=== PATIENT | female | born 1965 | race African-American/Black ===

== ENCOUNTER 2019-11-12 19:46 | Emergency (ER) | payer MEDICAID ==
[~2019-11-12] VITALS: Ht 162.6 cm; Wt 91.0 kg
[~2019-11-12 19:46] MED LIST: METFORMIN
[2019-11-12] MEDS ORDERED: KETOROLAC 60MG/2ML VIAL IM ONE (20:30)
[2019-11-12 22:10] VITALS: BP 129/86
== END 2019-11-12 22:43 | disposition home or self-care (01) ==
LOC: ER 19:46
DX: S93.401A Sprain of unspecified ligament of right ankle, initial encounter (principal); I10 Essential (primary) hypertension; E11.9 Type 2 diabetes mellitus without complications; Z98.890 Other specified postprocedural states; Z79.84 Long term (current) use of oral hypoglycemic drugs; W01.0XXA Fall on same level from slipping, tripping and stumbling without subsequent striking against object, initial encounter; Y93.89 Activity, other specified; Y92.89 Other specified places as the place of occurrence of the external cause
CPT/HCPCS: 73610; 96372; 99283; J1885

== ENCOUNTER 2021-09-16 05:48 | Inpatient (IN) | payer MEDICAID, OTHER ==
[~2021-09-16] VITALS: Ht 154.9 cm; Wt 64.4 kg
[2021-09-16 08:03] LABS: BASOPHILS % 0.9 % (0.0-2.0); EOSINOPHILS % 1.6 % (0.0-5.0); HEMATOCRIT. 38.1 % (36.0-48.0); HEMOGLOBIN. 13.2 g/dL (12.0-16.0); LYMPHOCYTES % 27.9 % (20.0-50.0); MEAN CORPUSCULAR HEMOGLOBIN 28.7 pg (28.0-32.0); MEAN PLATELET VOLUME 8.1 fl (7.4-10.4); MONOCYTES % 7.1 % (2.0-8.0); NEUTROPHILS % 62.5 % (40.0-76.0); PLATELET 323 x1000/uL (130-400); RED BLOOD CELL COUNT 4.58 mill/uL (4.2-5.4); RED CELL DISTRIBUTION WIDTH 13.1 % (11.6-14.6)
[2021-09-16 08:10] LABS: CHLORIDE 111 mEq/L (98-107)
[2021-09-16] MEDS ORDERED: ACETAMINOPHEN 325MG TABLET PO ONE (09:00)
[2021-09-16] MEDS ORDERED: IOHEXOL-350 100 ML BOTTLE ONE (10:19)
[2021-09-16] MEDS ORDERED: HYDROCODONE/ACETAMINOPHEN 5/325MG TABLET PO PRN (17:00)
[2021-09-16] MEDS ORDERED: NALOXONE HCL 0.4MG/ML VIAL IV PRN (17:00)
[2021-09-16] MEDS ORDERED: LORAZEPAM 0.5MG TABLET PO PRN (19:00)
[2021-09-16] MEDS ORDERED: ONDANSETRON HCL 4MG/2ML INJ IV PRN (19:00)
[2021-09-16] MEDS ORDERED: ACETAMINOPHEN 325MG TABLET PO PRN (19:00)
[2021-09-16] MEDS: METHOCARBAMOL 750MG TABLET PO SCH (21:02)
[2021-09-16] MEDS: HYDROMORPHONE HCL/PF 2MG/ML CPJ IV PRN (21:03)
[2021-09-17] MEDS: HYDROMORPHONE HCL/PF 2MG/ML CPJ IV PRN (03:19)
[2021-09-17] MEDS: METHOCARBAMOL 750MG TABLET PO SCH (05:59)
[2021-09-17] MEDS ORDERED: DEXTROSE 50% WATER 50ML SYRINGE IV PRN (07:00)
[2021-09-17] MEDS: INSULIN LISPRO (LOW DOSE) 100 UNITS/ML SUBCUT SCH ×4 (07:06→20:51)
[2021-09-17] MEDS: OMEPRAZOLE 20MG CAPSULE EXTENDED RELEASE PO SCH (09:53)
[2021-09-17] MEDS: BLOOD SUGAR DIAGNOSTIC STRIP TEST SCH ×3 (11:30→21:18)
[2021-09-17] MEDS ORDERED: INSULIN GLARGINE UD 100 UNITS/ML SYR SUBCUT NR (14:00)
[2021-09-17 14:36] VITALS: BP 141/81
[2021-09-17] MEDS ORDERED: BENA10TA74 MT (14:50)
[2021-09-17] MEDS: HYDROCODONE/ACETAMINOPHEN 10/325MG TABLET PO PRN ×2 (14:57→21:20)
[2021-09-17 16:00] VITALS: BP 111/72
[2021-09-17 20:00] VITALS: BP 136/75
[2021-09-18] VITALS: BP 116/66
[2021-09-18] MEDS: HYDROCODONE/ACETAMINOPHEN 10/325MG TABLET PO PRN ×2 (03:55→12:40)
[2021-09-18 04:00] VITALS: BP 117/62
[2021-09-18] MEDS: BLOOD SUGAR DIAGNOSTIC STRIP TEST SCH ×3 (05:56→16:48)
[2021-09-18] MEDS: INSULIN LISPRO (LOW DOSE) 100 UNITS/ML SUBCUT SCH ×3 (05:57→17:57)
[2021-09-18 08:00] VITALS: BP 118/66
[2021-09-18] MEDS: OMEPRAZOLE 20MG CAPSULE EXTENDED RELEASE PO SCH (08:26)
[2021-09-18 12:00] VITALS: BP 153/87
[2021-09-18 16:00] VITALS: BP 113/59
[2021-09-18 18:01] VITALS: BP 113/59
[2021-09-19] MEDS ORDERED: FAMOTIDINE 20MG TABLET PO SCH (09:00)
== END 2021-09-18 19:28 | disposition home or self-care (01) | DRG 347 ==
LOC: ER 05:48 → EDBEDREQTM 13:02 → EDBEDREQ 13:02 → MICUSO 18:40 → ENRESERV 20:48 → CANRESERV 20:48 → EDBEDREQSVC 21:33 → 8WST 09-17 14:48
PROVIDERS: ADMIT Internal Medicine; ATTEND Internal Medicine
DX: M43.6 Torticollis (principal); E11.9 Type 2 diabetes mellitus without complications; I65.29 Occlusion and stenosis of unspecified carotid artery; G89.29 Other chronic pain; I10 Essential (primary) hypertension; Z20.822 Contact with and (suspected) exposure to COVID-19
CPT/HCPCS: 36415; 70498; 72141; 80053; 82962; 85025; 87426; 99285; J1170; J1815; J2405; Q9967

== ENCOUNTER 2023-09-02 01:46 | Emergency (ER) | payer MEDICAID, OTHER ==
[~2023-09-02] VITALS: Ht 160 cm; Wt 58.0 kg
[~2023-09-02 01:46] MED LIST changes: +BENA10TA74 MT
[2023-09-02 01:48] VITALS: BP 133/83; PULSE 98; RESP 18; TEMP 97.8; O2SAT 100
[2023-09-02] MEDS ORDERED: CEPH500C2 MT (02:31)
== END 2023-09-02 02:50 | disposition home or self-care (01) ==
LOC: ER 01:56
DX: L73.8 Other specified follicular disorders (principal); E11.9 Type 2 diabetes mellitus without complications; Z98.890 Other specified postprocedural states
CPT/HCPCS: 99284